=== PATIENT | male | born 1970 | race Caucasian/White ===

== ENCOUNTER 2025-06-28 07:13 | Outpatient (CLI) | payer OTHER, SELFPAY ==
--- NOTE | 2025-06-28 08:28 | P.ANES_ITS ---
Anesthesia Charges Start Date/Time Anesthesia Start Date: 06/28/25 Anesthesia Start Time: 08:00 Stop Date/Time Anesthesia Stop Date: 06/28/25 Anesthesia Stop Time: 08:24 Coding CPT Codes CPT Codes: RANJITH LWR INTST SCR COLSC - [id number] ([id number]) P2 - PATIENT W/MILD SYST DISEASE, QK - CARDIAC TECHNOLOGIST 2-4 CNCRNT ANES PROC, QX - FILTRATION SUPERVISOR SVC W/ MD MED DIRECTION
--- NOTE | 2025-06-28 08:28 | P.ANES_ITS ---
Anesthesia Charges Start Date/Time Anesthesia Start Date: 06/28/25 Anesthesia Start Time: 08:00 Stop Date/Time Anesthesia Stop Date: 06/28/25 Anesthesia Stop Time: 08:24 Coding CPT Codes CPT Codes: RANJITH LWR INTST SCR COLSC - [id number] ([id number]) P2 - PATIENT W/MILD SYST DISEASE, QK - CORPSMAN 2-4 CNCRNT ANES PROC, QX - ELECTRICAL ACCESSORIES I ASSEMBLER SVC W/ MD MED DIRECTION
--- NOTE | 2025-06-28 08:28 | W.ANESCHARGE ---
Anesthesia Charges Start Date/Time Anesthesia Start Date: 06/28/25 Anesthesia Start Time: 08:00 Stop Date/Time Anesthesia Stop Date: 06/28/25 Anesthesia Stop Time: 08:24 Coding CPT Codes CPT Codes: RANJITH LWR INTST SCR COLSC - 31027 ([id number]) P2 - PATIENT W/MILD SYST DISEASE, QK - ELECTRIC METER SETTER 2-4 CNCRNT ANES PROC, QX - S[address] VENDOR SVC W/ MD MED DIRECTION
--- NOTE | 2025-06-28 08:28 | W.ANESCHARGE ---
Anesthesia Charges Start Date/Time Anesthesia Start Date: 06/28/25 Anesthesia Start Time: 08:00 Stop Date/Time Anesthesia Stop Date: 06/28/25 Anesthesia Stop Time: 08:24 Coding CPT Codes CPT Codes: RANJITH LWR INTST SCR COLSC - [id number] ([id number]) P2 - PATIENT W/MILD SYST DISEASE, QK - HVAC DESIGN ENGINEER 2-4 CNCRNT ANES PROC, QX - DOG DAYCARE PROVIDER SVC W/ MD MED DIRECTION
== END 2025-06-28 07:14 | disposition home or self-care (01) ==
LOC: OP CLINIC 07:17
PROVIDERS: PCP Family Medicine; Visit Provider Internal Medicine
DX: Z12.11 Encounter for screening for malignant neoplasm of colon (principal)
CPT/HCPCS: 00812; 45378; J2704